=== PATIENT | female | born 1970 | race Caucasian/White ===

== ENCOUNTER 2024-02-25 11:11 | Emergency (ER) | payer OTHER, SELFPAY ==
[2024-02-25 11:13] VITALS: BP 135/100
--- NOTE | 2024-02-25 12:37 | ED.GENMED ---
History of Present Illness
General
Chief Complaint: Headache
Source: patient and spouse
Exam Limitations: none
Time Seen by Provider: 02/25/24 12:22
Nursing documentation reviewed up to this point in time: agreed with
Travel History
Have you had any contact with someone who has COVID-19?: No
Do you have any symptoms of coronavirus? Fever > 100 degrees, chills, cough, shortness of breath, sore throat, loss of taste or smell, muscle aches, or headache?: No
History of Present Illness
History of Present Illness:
53-year-old female with a past medical history of migraines who presents to the emergency department for evaluation of multiple complaints--primarily complaining of nausea/vomiting and headache. Patient was notably just in the [place]
for her son's wedding. She says that she returned 9 days ago. She says 2 days after she returned (last Tuesday) after returning she began to feel sick and had 4 days of profuse nausea and vomiting. After this she began to experience profound
fatigue and has had a consistent headache which is quite severe since. Nausea has continued and she has not been able to take p.o. for the past few days. With symptoms not improving after about a week she came to the emergency room for assessment.
She reports diffuse pressure headache 'like my head might explode.' She says that she is photosensitive and phono sensitive. She reports continued nausea. She has had some diarrhea nonbloody. She denies any abdominal pain or cramping. She
denies any significant chest pain aside from occasional heartburns with vomiting. She denies any shortness of breath or cough. She denies any URI type symptoms. She has not been checking her temperature at home but says that she has felt like she
is 'burning up' and feels flushed in the face. She denies any trauma to the head. Apparently her friend who traveled with her on the trip is sick with similar symptoms. She does admit that she does not typically drink alcohol and while she was in
the [place] she was consuming 'a lot' of rum.
Review of Systems
Review of Systems
All Other Systems: ROS reviewed and negative except as documented in HPI and ROS
Constitutional: Reports fever (Subjective) and fatigue; Denies chills
EENT: Denies sore throat or runny nose
Respiratory: Denies cough or trouble breathing
Cardiac: Denies chest pain or palpitations
ABD/GI: Reports nausea, vomiting and diarrhea; Denies abdominal pain or bloody stools
: Denies flank pain
Musculoskeletal: Denies neck pain or back pain
Neurological: Reports headache; Denies dizzy
Phy Exam
Physical Exam
Physical Exam:
General: Awake, alert, oriented x3; laying in bed eyes closed, room dark, ice pack on her head
Head: Normocephalic, atraumatic
Eyes: Conjunctiva normal, EOMI, pupils equal round reactive to light bilateral
Throat: Airway intact, dry mucous membranes
Neck: Trachea midline, supple without meningismus
Lungs: Clear to auscultation bilaterally, no wheezing, rales, rhonchi
Heart: Tachycardia with regular rhythm, no murmurs, gallops, or rubs
Abd: Soft, non distended, nontender to deep palpation
Neuro: Cranial nerves grossly intact, speech fluid, no motor or sensory deficits
Skin: no rash
Extremities: Warm well-perfused
Scores
Heart Failure Risk
Heart Failure Risk Score: Not Applicable
Heart Score for Chest Pain Patients
STEMI patient?: Not applicable
Withdrawal Assessment of Alcohol
Withdrawal Assessment Completed?: Not applicable
Course
Orders/Labs/Results
Orders:
Orders
02/25/24 12:23
CT Head W/o Iv Contrast Urgent
Comment:
Reason For Exam: headache, vomiting
0.9% Sodium Chloride 1000 ml [Nss] 1,000 ml IV BOLUS
Ondansetron Injectable [Zofran] 4 mg IV NOW STA
02/25/24 12:37
Ketorolac [Toradol] 15 mg IV NOW STA
02/25/24 12:47
Electrocardiogram (*1) Urgent
Reason for Study: QTc Monitoring
EKG- Treatment ONCE
02/25/24 13:14
COVID-19 Antigen Urgent
Source: Nasal Swab
Complete Blood Count/With Diff Urgent
Comprehensive Metabolic Panel Urgent
Lipase Urgent
Magnesium Urgent
Influenza A+B Rapid Molecular Urgent
LISETH Source: Nasal Swab
Specimen Description:
02/25/24 13:35
CT Head & Neck Angio W/wo IV Urgent
Comment:
Reason For Exam: SAH
Abnormal Lab Results
02/25/24
13:14
WBC 17.5 H 10^3/uL
(4.8-10.8)
Plt Count 562 H 10^3/uL
(130-400)
Abs Immat Gran (auto) 0.1 H 10^3/uL
(0-0.05)
Absolute Neuts (auto) 12.5 H 10^3/uL
(1.4-6.5)
Absolute Monos (auto) 1.4 H 10^3/uL
(0.1-0.6)
Immature Gran % 0.6 H %
(0-0.5)
Lymphocytes % 19.4 L %
(20.5-51.1)
Sodium 131 L mmol/L
(135-145)
Chloride 94 L mmol/L
(98-107)
Carbon Dioxide 31 H mmol/L
(22-30)
BUN 22 H mg/dl
(7-17)
Glucose 112 H mg/dl
(70-99)
Magnesium 2.7 H mg/dl
(1.6-2.3)
AST 76 H U/L
(14-36)
ALT 95 H U/L
(0-35)
Alkaline Phosphatase 157 H U/L
(38-126)
02/25/24 13:14
02/25/24 13:14
Vital Signs
Initial and Last Documented VS:
Initial Vital Signs
Temp Pulse Resp BP Pulse Ox
36.6 C 108 18 135/100 99
02/25/24 11:13 02/25/24 11:13 02/25/24 11:13 02/25/24 11:13 02/25/24 11:13
Last Documented Vital Signs
Temp Pulse Resp BP Pulse Ox
36.6 C 82 17 108/79 97
02/25/24 16:59 02/25/24 16:59 02/25/24 16:59 02/25/24 16:59 02/25/24 16:59
MDM/Problems Addressed
Differential Diagnosis Includes:
Gastroenteritis with dehydration, pancreatitis, migraine headache, tension headache, intracranial hemorrhage, meningitis
MDM/Problems Addressed:
53-year-old female presents for evaluation of nausea and vomiting associated with headache and generalized fatigue, diarrhea and malaise, subjective fever�the symptoms have been ongoing for the past week since return from the [facility].
She is tachycardic but has otherwise normal vitals. Her physical exam is as above. Suspect that this is likely gastroenteritis with dehydration triggering worsening headache and fatigue. Nevertheless with 4 days of which she describes as severe
headache will send for CT head. Will check labs including a CBC and a CMP, lipase. Will treat with IV fluids, Toradol, Zofran to start. Will monitor closely reassess after the above. While meningitis a consideration with headache and
nausea/vomiting, somewhat lower suspicion based on her exam, timeline. Hold off on LP for now but low threshold.
CT reviewed by yusra for subarachnoid hemorrhage. Call placed to neurosurgery to discuss�recommended CT angiogram of the head and neck. Will review CT imaging. Likely transfer. Spoke with patient and �their preference is to try to
transfer to [facility] if needed. Placed additional IV. Continue to monitor. Patient remains awake and alert.
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 Neurosurgery reviewed imaging and recommended transfer to higher level of care. Patient is requesting transfer to [facility] will discuss with neurosurgery at [facility].
Unfortunately difficulty in getting acceptance for transfer from [facility] on multiple times over 2 hours. Discussed with family will transfer to [place]. Patient was accepted for transfer by Dr. Guevara to the ICU at [facility]. Will monitor pending
transfer.
Unfortunately flight team had to abort transport due to bad weather. We are working to obtain expedited ground transport for transfer as soon as possible. Clinical reassessment patient is slightly more disoriented than initial assessment with a
GCS of 14. Updated [facility]--recommended urgent transport, no need for steroids right now.
Very difficult case from a transport perspective�very prolonged transport time for ALS, flight team canceled. We were able to arrange for expedited S transport and will send a nurse down to transport with patient. Mental status is currently
stable with GCS of 14, blood pressure has been normal.
*Radiology
Radiology exam reviewed: preliminary read by ED provider (Subarachnoid hemorrhage) and radiology read reviewed
*Pulse Oximetry
Patient hypoxic: no
*EKG
Interpreted by ED Provider?: Yes
Heart Rate: 85
Rate: normal
Rhythm: sinus
[place]: normal axis
Interval: normal interval
QRS Pattern: normal QRS
Ischemia: T-wave inversion (Anterior T wave inversions-cerebral T waves)
*Critical Care Note
Total Time (30-74mins, 75-104mins- exclusive of procedures): 39
comment:
Critical care statement: A total of 39 minutes of critical care time was provided for this patient. This includes management of unstable vital signs, evaluation of the patient at bedside, frequent reassessment, discussion with
consultants/hospitalist, and review of pertinent medical records. This time was separate from time utilized to perform any aforementioned documented procedures
Data Reviewed
Source: patient and spouse
Patient Management
Discussion with other providers: St[employer] St[employer]her (Discussed with neurosurgery) and Radiologist (Discussed with radiologist)
Escalation/DeEscalation of care consider admission/obs:
Admission indicated�transfer to tertiary care center
ED Attending Note
-
Portions of this chart may have been created with voice recognition software.� Occasional wrong word or��sound alike� substitutions may have occurred due to the inherent limitations of voice recognition software.
Discharge Plan
Departure
Patient Disposition: Acute Care Hospital
Date of Disposition: 02/25/24
Time of Disposition: 13:51
Discharge Problem:
Subarachnoid hemorrhage
Referrals:
Hermilo Tam MD [Family Provider] -
Hospital Transfer
Other hospital: [facility]
I certify that the patient requires transfer: Yes
Discussed case with accepting physician: Dr. Guevara
Reason for transfer: higher level of care and availability of service
Interventions
Interventions:
*Risk Screen - Suicide Last Done: 02/25/24 11:13
*General Assessment Last Done: 02/25/24 11:13
*Neglect/Abuse Screening Last Done: 02/25/24 11:13
*ED COVID-19 Vaccine History Last Done: 02/25/24 11:13
ED- Neurological Assessment Last Done: 02/25/24 17:00
Discharge Date and Time
Print Language: DANISH
[2024-02-25 12:55] VITALS: BMI 29.9
[2024-02-25] MEDS: NSS 1000 IV (13:15)
[2024-02-25] MEDS: TORADOL 15 MG IV (13:16)
[2024-02-25] MEDS: ZOFRAN 4 MG IV (13:16)
[2024-02-25 13:26] LABS: % Basophils 0.2 % (0-2); % Eosinophils 0.1 % (0-6); % Immature Granulocytes 0.6 % (0-0.5); % Lymphocytes 19.4 % (20.5-51.1); % Monocytes 8.2 % (1.7-9.3); % Neutrophils 71.5 % (42.2-75.2); Absolute Immature Granulocytes 0.1 10^3/uL (0-0.05); Absolute Lymphocytes 3.4 10^3/uL (1.2-3.4); Absolute Monocytes 1.4 10^3/uL (0.1-0.6); Absolute Neutrophils 12.5 10^3/uL (1.4-6.5); Hematocrit 45.1 % (37.0-47.0); Mean Corp Hgb Conc. 35.5 g/dL (33.0-37.0); Mean Corpuscular Hgb 30.9 pg (27.0-31.0); Mean Corpuscular Volume 87.1 fL (81.0-99.0); Mean Platelet Volume 8.7 fL (7.4-10.4); Nucleated Red Blood Cells % 0 %; Platelet Count 562 10^3/uL (130-400); Red Blood Cell Count 5.18 10^6/uL (4.20-5.40); Red Cell Dist. Width 13.1 % (11.5-14.5); White Blood Cell Count 17.5 10^3/uL (4.8-10.8)
[2024-02-25 13:46] LABS: COVID-19 Antigen Negative (Negative)
[2024-02-25 13:47] LABS: ALT (SGPT) 95 U/L (0-35); AST (SGOT) 76 U/L (14-36); Albumin 4.4 g/dl (3.5-5.0); Alkaline Phosphatase 157 U/L (38-126); Blood Urea Nitrogen 22 mg/dl (7-17); Calcium 9.6 mg/dl (8.4-10.2); Carbon Dioxide 31 mmol/L (22-30); Chloride 94 mmol/L (98-107); Estimated Creatinine Clearance 78 ml/min; Glucose 112 mg/dl (70-99); Lipase 251 U/L (23-300); Magnesium 2.7 mg/dl (1.6-2.3); Potassium 3.8 mmol/L (3.5-5.1); Sodium 131 mmol/L (135-145); Total Bilirubin 0.6 mg/dl (0.2-1.3); Total Protein 7.6 g/dl (6.3-8.2); eGFR > 60.00
[2024-02-25 15:00] VITALS: BP 108/58
[2024-02-25 16:02] VITALS: BP 108/58
[2024-02-25 16:59] VITALS: BP 108/79
== END 2024-02-25 18:00 | disposition short-term general hospital (02) ==
LOC: EMR 11:11
PROVIDERS: EMERGENCY PHYSICIAN Emergency Medicine; FAMILY PHYSICIAN Internal Medicine
DX: I60.9 Nontraumatic subarachnoid hemorrhage, unspecified (principal); I67.1 Cerebral aneurysm, nonruptured; R40.2410 Glasgow coma scale score 13-15, unspecified time; Z11.52 Encounter for screening for COVID-19
CPT/HCPCS: 99291; 96374; 96375; 96361; 70450; 70496; 70498; 80053; 83690; 83735; 85025; 87502; 87811; 93005; Q9967

== ENCOUNTER → 2025-03-11 16:02 | Outpatient (REF) | payer OTHER, SELFPAY | LOC: RAD 16:02 | PROVIDERS: ATTENDING PHYSICIAN Internal Medicine | DX: M25.561 Pain in right knee (principal) | CPT/HCPCS: 73564 ==